=== PATIENT | female | born 1950 | race Caucasian/White ===

== ENCOUNTER 2022-05-24 12:48 | Inpatient (IN) | payer OTHER ==
[~2022-05-24] VITALS: Ht 162.6 cm; Wt 72.6 kg
[2022-05-24] MEDS ORDERED: ONDANSETRON HCL 4MG/2ML INJ IV STA (13:01)
[2022-05-24] MEDS ORDERED: PANTOPRAZOLE SODIUM 40 MG/VIAL IV ONE (13:15)
[2022-05-24] MEDS ORDERED: SODIUM CHLORIDE 0.9% 1,000 ML IV ONE (13:15)
[2022-05-24 13:39] LABS: MEAN CORPUSCULAR HEMOGLOBIN 26.1 pg (28.0-32.0); MEAN CORPUSCULAR VOLUME 85.4 fL (81.0-99.0); MEAN PLATELET VOLUME 8.7 fl (7.4-10.4); PLATELET 189 x1000/uL (130-400); RED BLOOD CELL COUNT 2.66 mill/uL (4.2-5.4); RED CELL DISTRIBUTION WIDTH 26.7 % (11.6-14.6)
[2022-05-24 13:40] LABS: CHLORIDE 104 mEq/L (98-107)
[2022-05-24 13:41] LABS: PROTHROMBIN TIME 10.9 sec (9.6-11.0)
[2022-05-24 13:42] LABS: HEMATOCRIT. 22.7 % (36.0-48.0); HEMOGLOBIN. 6.9 g/dL (12.0-16.0)
[2022-05-24 14:00] LABS: NUCLEATED RED BLOOD CELLS 1 /100 WBC
[2022-05-24 14:01] LABS: PLATELET ESTIMATE NORMAL
[2022-05-24] MEDS: PANTOPRAZOLE SODIUM 40 MG/VIAL IV SCH (19:14)
[2022-05-24 21:37] VITALS: BP 99/31
[2022-05-24 21:55] LABS: CLARITY URINE CLEAR (CLEAR); COLOR URINE YELLOW (YELLOW); KETONES URINE 1+ (NEGATIVE); LEUKOCYTE ESTERASE URINE NEGATIVE (NEGATIVE); NITRITE URINE NEGATIVE (NEGATIVE); OCCULT BLOOD URINE NEGATIVE (NEGATIVE); PH URINE 5.5 (4.5-8.0); PROTEIN URINE 1+ (NEGATIVE); SPECIFIC GRAVITY URINE 1.018 (1.005-1.030); UROBILINOGEN URINE 0.2 E.U./dL (0.2-1.0)
[2022-05-24] MEDS ORDERED: PANTOPRAZOLE SODIUM 40 MG/VIAL IV SCH (22:30)
[2022-05-24] MEDS: DEXT 5%/0.45% NACL 1000ML 1,000 ML IV SCH (22:39)
[2022-05-25] VITALS (9 sets, daily range): BP systolic 113–165; BP diastolic 44–68
[2022-05-25] MEDS: DEXT 5%/0.45% NACL 1000ML 1,000 ML IV SCH ×2 (00:28→18:17)
[2022-05-25] MEDS: LORAZEPAM 2MG/ML CPJ IV PRN ×2 (00:29→15:18)
[2022-05-25] MEDS ORDERED: NALOXONE HCL 0.4MG/ML VIAL IV PRN (02:00)
[2022-05-25] MEDS: MORPHINE SULFATE 2 MG/ML CPJ (NOT FOR IM USE) IV PRN ×3 (02:56→21:20)
[2022-05-25 07:02] LABS: HEMATOCRIT 26.3 % (36.0-48.0); HEMOGLOBIN 8.6 g/dL (12.0-16.0)
[2022-05-25 07:46] LABS: TOTAL IRON BINDING CAPACITY 340 ug/dL (250-450)
[2022-05-25] MEDS ORDERED: FERR15DR7 MT (07:57)
[2022-05-25] MEDS ORDERED: AMLO2.5T45 MT (07:57)
[2022-05-25] MEDS ORDERED: APIX2.5T MT (07:58)
[2022-05-25] MEDS ORDERED: ASCO125T PO (07:58)
[2022-05-25] MEDS: PANTOPRAZOLE SODIUM 40 MG/VIAL IV SCH ×2 (10:22→18:18)
[2022-05-25] MEDS: DIGOXIN 500MCG/2ML AMP IV SCH ×2 (10:22→14:04)
[2022-05-25 11:22] LABS: FOLIC ACID (FOLATE) SERUM 10.4 ng/mL (>5.38)
[2022-05-25] MEDS: PIPERACILLIN/TAZOBACTAM 3.375 G in DEXTROSE 5% WATER 50 ML IV SCH ×2 (11:30→21:20)
[2022-05-25] MEDS ORDERED: DEXAMETHASONE 4MG/ML 1ML VIAL ONE (11:59)
[2022-05-25] MEDS ORDERED: ONDANSETRON HCL 4MG/2ML INJ ONE (11:59)
[2022-05-25] MEDS ORDERED: PROPOFOL 200MG/20ML VIAL IV ONE (11:59)
[2022-05-25] MEDS ORDERED: IPRATROPIUM/ALBUTEROL 0.5-3(2.5)MG/3ML NEB HHN PRN (14:45)
[2022-05-25] MEDS ORDERED: ALBUTEROL (0.083%) 2.5MG/3ML NEB HHN PRN (15:00)
[2022-05-25] MEDS ORDERED: IPRATROPIUM BROMIDE (0.02%) 0.5MG/2.5ML NEB HHN PRN (15:00)
[2022-05-25] MEDS: GUAIFENESIN 200MG/10ML SUGAR FREE UDC PO PRN (16:13)
[2022-05-25] MEDS: IPRATROPIUM BROMIDE (0.02%) 0.5MG/2.5ML NEB HHN SCH ×2 (16:23→20:43)
[2022-05-25] MEDS: BUDESONIDE 0.5MG/2ML NEB HHN SCH ×2 (16:23→20:44)
[2022-05-25] MEDS: ALBUTEROL (0.083%) 2.5MG/3ML NEB HHN SCH ×2 (16:23→20:44)
[2022-05-25] MEDS ORDERED: IPRATROPIUM/ALBUTEROL 0.5-3(2.5)MG/3ML NEB HHN SCH (18:00)
[2022-05-25] MEDS: IRON SUCROSE COMPLEX 100 MG/5 ML ML IV SCH (18:17)
[2022-05-26] VITALS: BP 131/50
[2022-05-26] MEDS: IPRATROPIUM BROMIDE (0.02%) 0.5MG/2.5ML NEB HHN SCH ×4 (02:10→21:07)
[2022-05-26] MEDS: ALBUTEROL (0.083%) 2.5MG/3ML NEB HHN SCH ×4 (02:10→21:07)
[2022-05-26 04:00] VITALS: BP 138/43
[2022-05-26] MEDS: MORPHINE SULFATE 2 MG/ML CPJ (NOT FOR IM USE) IV PRN ×4 (04:33→23:32)
[2022-05-26] MEDS: GUAIFENESIN 200MG/10ML SUGAR FREE UDC PO PRN ×2 (04:33→14:06)
[2022-05-26 05:27] LABS: HEMATOCRIT 23.9 % (36.0-48.0); HEMOGLOBIN 7.9 g/dL (12.0-16.0)
[2022-05-26] MEDS: LORAZEPAM 2MG/ML CPJ IV PRN ×2 (06:20→16:18)
[2022-05-26] MEDS: PIPERACILLIN/TAZOBACTAM 3.375 G in DEXTROSE 5% WATER 50 ML IV SCH ×3 (06:20→23:34)
[2022-05-26 08:00] VITALS: BP 159/69
[2022-05-26] MEDS: PANTOPRAZOLE SODIUM 40 MG/VIAL IV SCH ×2 (08:39→16:17)
[2022-05-26] MEDS: DEXT 5%/0.45% NACL 1000ML 1,000 ML IV SCH ×2 (08:43→21:10)
[2022-05-26] MEDS ORDERED: SUCR1TAB MT (10:41)
[2022-05-26] MEDS ORDERED: PROT40 MT (10:41)
[2022-05-26 12:00] VITALS: BP 160/52
[2022-05-26] MEDS: IRON SUCROSE COMPLEX 100 MG/5 ML ML IV SCH (14:06)
[2022-05-26] MEDS: BUDESONIDE 0.5MG/2ML NEB HHN SCH ×2 (14:53→21:07)
[2022-05-26 16:00] VITALS: BP 142/68
[2022-05-26] MEDS: FUROSEMIDE 40MG/4ML VIAL IVP SCH (16:17)
[2022-05-26 18:14] LABS: HEMATOCRIT. 22.6 % (36.0-48.0); HEMOGLOBIN. 7.3 g/dL (12.0-16.0); LYMPHOCYTES % 7.1 % (20.0-50.0); MEAN CORPUSCULAR VOLUME 92.2 fL (81.0-99.0); MEAN PLATELET VOLUME 9.2 fl (7.4-10.4); MONOCYTES % 5.5 % (2.0-8.0); NEUTROPHILS % 87.4 % (40.0-76.0); PLATELET 117 x1000/uL (130-400); RED BLOOD CELL COUNT 2.45 mill/uL (4.2-5.4); RED CELL DISTRIBUTION WIDTH 21.4 % (11.6-14.6)
[2022-05-26 19:30] LABS: CHLORIDE 106 mEq/L (98-107)
[2022-05-26 20:00] VITALS: BP 132/34
[2022-05-26] MEDS: GUAIFENESIN 600MG ER TABLET PO SCH (21:09)
[2022-05-26] MEDS: SUCRALFATE 1 G/10 ML UDC PO SCH (21:09)
[2022-05-27] VITALS (11 sets, daily range): BP systolic 116–147; BP diastolic 40–58
[2022-05-27] MEDS: LORAZEPAM 2MG/ML CPJ IV PRN ×3 (02:17→21:02)
[2022-05-27] MEDS: IPRATROPIUM BROMIDE (0.02%) 0.5MG/2.5ML NEB HHN SCH ×4 (02:59→21:57)
[2022-05-27] MEDS: ALBUTEROL (0.083%) 2.5MG/3ML NEB HHN SCH ×4 (02:59→21:50)
[2022-05-27] MEDS: SUCRALFATE 1 G/10 ML UDC PO SCH ×4 (05:53→21:03)
[2022-05-27] MEDS: MORPHINE SULFATE 2 MG/ML CPJ (NOT FOR IM USE) IV PRN ×3 (05:54→17:04)
[2022-05-27 06:10] LABS: EOSINOPHILS % 0.2 % (0.0-5.0); HEMATOCRIT. 22.3 % (36.0-48.0); HEMOGLOBIN. 7.2 g/dL (12.0-16.0); LYMPHOCYTES % 9.3 % (20.0-50.0); MEAN CORPUSCULAR HEMOGLOBIN 29.7 pg (28.0-32.0); MEAN CORPUSCULAR VOLUME 91.8 fL (81.0-99.0); MEAN PLATELET VOLUME 9.7 fl (7.4-10.4); MONOCYTES % 7.5 % (2.0-8.0); PLATELET 120 x1000/uL (130-400); RED BLOOD CELL COUNT 2.43 mill/uL (4.2-5.4); RED CELL DISTRIBUTION WIDTH 21.1 % (11.6-14.6)
[2022-05-27] MEDS: PIPERACILLIN/TAZOBACTAM 3.375 G in DEXTROSE 5% WATER 50 ML IV SCH ×3 (06:37→21:58)
[2022-05-27] MEDS: BUDESONIDE 0.5MG/2ML NEB HHN SCH ×2 (07:59→21:57)
[2022-05-27] MEDS: GUAIFENESIN 600MG ER TABLET PO SCH ×2 (09:17→21:03)
[2022-05-27] MEDS: PANTOPRAZOLE SODIUM 40 MG/VIAL IV SCH ×2 (09:17→17:01)
[2022-05-27] MEDS: DILTIAZEM HCL 30MG TABLET PO SCH ×2 (14:06→21:20)
[2022-05-27] MEDS ORDERED: ACETAMINOPHEN 325MG TABLET PO PRN (15:45)
[2022-05-27] MEDS: DEXT 5%/0.45% NACL 1000ML 1,000 ML IV SCH (21:59)
[2022-05-27] MEDS: ZOLPIDEM TARTRATE 5MG TABLET PO PRN (23:48)
[2022-05-28] MEDS: IPRATROPIUM BROMIDE (0.02%) 0.5MG/2.5ML NEB HHN SCH ×3 (01:33→21:28)
[2022-05-28] MEDS: ALBUTEROL (0.083%) 2.5MG/3ML NEB HHN SCH ×4 (01:33→21:28)
[2022-05-28] MEDS: PIPERACILLIN/TAZOBACTAM 3.375 G in DEXTROSE 5% WATER 50 ML IV SCH ×3 (06:20→21:14)
[2022-05-28] MEDS: DILTIAZEM HCL 30MG TABLET PO SCH ×3 (06:22→21:18)
[2022-05-28] MEDS: MORPHINE SULFATE 2 MG/ML CPJ (NOT FOR IM USE) IV PRN ×3 (06:28→17:53)
[2022-05-28] MEDS: SUCRALFATE 1 G/10 ML UDC PO SCH ×4 (06:33→21:13)
[2022-05-28 06:39] LABS: BASOPHILS % 0.2 % (0.0-2.0); HEMATOCRIT. 27.6 % (36.0-48.0); HEMOGLOBIN. 9.3 g/dL (12.0-16.0); LYMPHOCYTES % 11.5 % (20.0-50.0); MEAN CORPUSCULAR HEMOGLOBIN 29.9 pg (28.0-32.0); MEAN CORPUSCULAR VOLUME 88.6 fL (81.0-99.0); MEAN PLATELET VOLUME 9.6 fl (7.4-10.4); MONOCYTES % 6.8 % (2.0-8.0); NEUTROPHILS % 80.5 % (40.0-76.0); PLATELET 141 x1000/uL (130-400); RED BLOOD CELL COUNT 3.11 mill/uL (4.2-5.4); RED CELL DISTRIBUTION WIDTH 21.3 % (11.6-14.6)
[2022-05-28 07:25] LABS: CHLORIDE 102 mEq/L (98-107)
[2022-05-28 08:00] VITALS: BP 149/66
[2022-05-28] MEDS: GUAIFENESIN 600MG ER TABLET PO SCH ×2 (08:43→21:13)
[2022-05-28] MEDS: LORAZEPAM 2MG/ML CPJ IV PRN ×2 (08:43→21:23)
[2022-05-28] MEDS: DEXT 5%/0.45% NACL 1000ML 1,000 ML IV SCH (08:43)
[2022-05-28] MEDS: PANTOPRAZOLE SODIUM 40 MG/VIAL IV SCH ×2 (08:43→17:53)
[2022-05-28] MEDS: FUROSEMIDE 40MG/4ML VIAL IVP SCH ×2 (09:00→10:19)
[2022-05-28] MEDS: BUDESONIDE 0.5MG/2ML NEB HHN SCH (09:38)
[2022-05-28] MEDS ORDERED: ZOLP5TAB2 MT (10:35)
[2022-05-28] MEDS ORDERED: HYDR-4009 MT (10:35)
[2022-05-28 12:00] VITALS: BP 145/55
[2022-05-28 16:00] VITALS: BP 111/44
[2022-05-28 20:00] VITALS: BP 100/48
[2022-05-28] MEDS: ZOLPIDEM TARTRATE 5MG TABLET PO PRN (23:16)
[2022-05-29] VITALS: BP 118/64
[2022-05-29] MEDS: IPRATROPIUM BROMIDE (0.02%) 0.5MG/2.5ML NEB HHN SCH ×2 (02:39→15:04)
[2022-05-29] MEDS: ALBUTEROL (0.083%) 2.5MG/3ML NEB HHN SCH ×2 (02:39→15:03)
[2022-05-29 04:00] VITALS: BP 135/48
[2022-05-29 05:22] LABS: HEMATOCRIT. 30.1 % (36.0-48.0); HEMOGLOBIN. 10.3 g/dL (12.0-16.0); MEAN CORPUSCULAR HEMOGLOBIN 30.6 pg (28.0-32.0); MEAN CORPUSCULAR VOLUME 89.5 fL (81.0-99.0); MEAN PLATELET VOLUME 9.5 fl (7.4-10.4); PLATELET 183 x1000/uL (130-400); RED BLOOD CELL COUNT 3.36 mill/uL (4.2-5.4)
[2022-05-29] MEDS: PIPERACILLIN/TAZOBACTAM 3.375 G in DEXTROSE 5% WATER 50 ML IV SCH ×2 (05:48→14:29)
[2022-05-29] MEDS: SUCRALFATE 1 G/10 ML UDC PO SCH ×3 (05:50→16:00)
[2022-05-29] MEDS: DILTIAZEM HCL 30MG TABLET PO SCH ×2 (05:50→14:00)
[2022-05-29] MEDS: MORPHINE SULFATE 2 MG/ML CPJ (NOT FOR IM USE) IV PRN ×3 (06:06→14:33)
[2022-05-29 08:18] VITALS: BP 132/55
[2022-05-29] MEDS: PANTOPRAZOLE SODIUM 40 MG/VIAL IV SCH ×2 (08:32→16:00)
[2022-05-29] MEDS: FUROSEMIDE 40MG/4ML VIAL IVP SCH ×2 (08:32→08:38)
[2022-05-29] MEDS: GUAIFENESIN 600MG ER TABLET PO SCH (08:32)
[2022-05-29] MEDS: LORAZEPAM 2MG/ML CPJ IV PRN (08:43)
[2022-05-29 09:29] VITALS: BP 132/55
[2022-05-29] MEDS ORDERED: POTASSIUM CHLORIDE 20MEQ/PACKET PO NR (10:00)
[2022-05-29 12:25] VITALS: BP 123/51
[2022-05-29 16:20] VITALS: BP 117/50
[2022-05-29 17:41] LABS: PLATELET ESTIMATE NORMAL
== END 2022-05-29 19:49 | disposition home or self-care (01) | DRG 377 ==
LOC: ER 12:48 → 7EST 15:49 → EDBEDREQSVC 16:03 → EDBEDREQ 16:03 → ENRESERV 19:23 → 7EST 05-25 07:27
PROVIDERS: ADMIT Internal Medicine; ATTEND Internal Medicine
PROC: 30233N1 Transfusion of Nonautologous Red Blood Cells into Peripheral Vein, Percutaneous Approach (ICD-10-PCS; principal; 2022-05-24)
PROC: 0DB48ZX Excision of Esophagogastric Junction, Via Natural or Artificial Opening Endoscopic, Diagnostic (ICD-10-PCS; 2022-05-25)
DX: K62.5 Hemorrhage of anus and rectum (principal); K85.90 Acute pancreatitis without necrosis or infection, unspecified; E44.1 Mild protein-calorie malnutrition; J96.10 Chronic respiratory failure, unspecified whether with hypoxia or hypercapnia; R65.10 Systemic inflammatory response syndrome (SIRS) of non-infectious origin without acute organ dysfunction; K26.4 Chronic or unspecified duodenal ulcer with hemorrhage; K29.71 Gastritis, unspecified, with bleeding; Z20.822 Contact with and (suspected) exposure to COVID-19; D50.0 Iron deficiency anemia secondary to blood loss (chronic); F32.A Depression, unspecified; I10 Essential (primary) hypertension; G89.29 Other chronic pain; F41.9 Anxiety disorder, unspecified; I48.91 Unspecified atrial fibrillation; J44.9 Chronic obstructive pulmonary disease, unspecified; K44.9 Diaphragmatic hernia without obstruction or gangrene; K83.8 Other specified diseases of biliary tract; Z86.718 Personal history of other venous thrombosis and embolism; Z87.01 Personal history of pneumonia (recurrent); Z88.0 Allergy status to penicillin; Z99.81 Dependence on supplemental oxygen; Z79.01 Long term (current) use of anticoagulants; Z87.891 Personal history of nicotine dependence; E87.6 Hypokalemia; I07.1 Rheumatic tricuspid insufficiency; E11.65 Type 2 diabetes mellitus with hyperglycemia
CPT/HCPCS: 36415; 71045; 74176; 76700; 80048; 80053; 80076; 81003; 82607; 82728; 82746; 83540; 83550; 83605; 83880; 84145; 84484; 85014; 85018; 85025; 86850; 86900; 86920; 87186; 87426; 88305; 93005; 93306; 93970; 94640; 97166; 99291; C1893; C9113; C9803; J1100; J1160; J1940; J2060; J2270; J2405; J2543; J2704; J7030; J7060; J7626; P9016

== ENCOUNTER 2022-06-24 18:55 | Emergency (ER) | payer MEDICARE, MEDICAID ==
[~2022-06-24] VITALS: Ht 157.5 cm; Wt 68.0 kg
[~2022-06-24 18:55] MED LIST: AMLO2.5T45 MT; ASCO125T PO; FERR15DR7 MT; HYDR-4009 MT; PROT40 MT; SUCR1TAB MT; ZOLP5TAB2 MT
[2022-06-24] MEDS ORDERED: ONDANSETRON HCL 4MG/2ML INJ IV ONE (19:30)
[2022-06-24] MEDS ORDERED: FAMOTIDINE 20MG/2ML VIAL IV ONE (19:30)
[2022-06-24] MEDS ORDERED: SODIUM CHLORIDE 0.9% 1,000 ML IV ONE (19:30)
[2022-06-24] MEDS ORDERED: ALPRAZOLAM 0.5 MG TABLET PO ONE (19:45)
[2022-06-24 19:53] LABS: BASOPHILS % 0.4 % (0.0-2.0); EOSINOPHILS % 0.2 % (0.0-5.0); HEMATOCRIT. 35.5 % (36.0-48.0); HEMOGLOBIN. 11.8 g/dL (12.0-16.0); LYMPHOCYTES % 9.3 % (20.0-50.0); MEAN CORPUSCULAR HEMOGLOBIN 28.8 pg (28.0-32.0); MEAN CORPUSCULAR VOLUME 86.4 fL (81.0-99.0); MEAN PLATELET VOLUME 8.2 fl (7.4-10.4); MONOCYTES % 7.7 % (2.0-8.0); NEUTROPHILS % 82.4 % (40.0-76.0); PLATELET 325 x1000/uL (130-400); RED BLOOD CELL COUNT 4.12 mill/uL (4.2-5.4); RED CELL DISTRIBUTION WIDTH 17.3 % (11.6-14.6)
[2022-06-24 20:09] LABS: CHLORIDE 101 mEq/L (98-107)
[2022-06-24] MEDS ORDERED: FAMOTIDINE 20MG/2ML VIAL IV SCH (21:45)
[2022-06-24] MEDS ORDERED: ONDANSETRON HCL 4MG/2ML INJ IV SCH (22:00)
[2022-06-24] MEDS ORDERED: LORAZEPAM 2MG/ML CPJ IV ONE (22:45)
[2022-06-25] MEDS ORDERED: IOHEXOL-350 100 ML BOTTLE ONE (00:06)
[2022-06-25] MEDS ORDERED: LORAZEPAM 2MG/ML CPJ IV NR (01:00)
[2022-06-25 06:00] VITALS: BP 145/72
== END 2022-06-25 07:20 | disposition home or self-care (01) ==
LOC: ER 18:55
DX: R10.13 Epigastric pain (principal); R05.9 Cough, unspecified; R09.81 Nasal congestion; I10 Essential (primary) hypertension; Z88.0 Allergy status to penicillin; Z98.890 Other specified postprocedural states
CPT/HCPCS: 36415; 71045; 71275; 80053; 83880; 84484; 85025; 93005; 96361; 96374; 96375; 96376; 99285; J2060; J2405; J3490; J7030; Q9967